=== PATIENT | male | born 1960 | race African-American/Black ===

== ENCOUNTER 2022-04-09 07:26 | Outpatient (CLI) | payer OTHER, SELFPAY ==
--- NOTE | ~2022-04-09 | NM_ITS ---
EXAMINATION: NM amy stress w perfusion DATE: 04/09/2022 09:12 INDICATION: Coronary artery disease TECHNIQUE: Rest images were obtained following intravenous administration of 10.9 mCi Tc99m tetrofosm in (Myoview). The patient was infused intravenously with Lexiscan (Regadenoson). Then, 34.5 mCi Tc99m tetrofosmin (Myoview) was administered intravenously, and stress images were obtained. Data was brad nstructed into short axis and horizontal and vertical long axis SPECT images. Gated SPECT images were also obtained. COMPARISON: None. FINDINGS: There is no definite reversible or fixed perfusion abnormality to suggest ischemia or infar ction. There is normal left ventricular chamber size, wall motion and ejection fraction. Left ventr icular ejection fraction measures 64%. IMPRESSION: 1. Normal myocardial perfusion at rest and during stress. 2. Left ventricular ejection fraction measuring 64%. Reviewed, dictated and finalized at location B.
--- NOTE | 2022-04-09 07:30 | EST_ITS ---
Patient Info Name: Geovani Crook Jr Age: 61 years : 1960 Gender: Male Ht: 70 in Wt: 280 lbs BSA: 2.56 m2 HR: 60 bpm BP: 150 / 92 mmHg Heart Rhythm: Sinus Rhythm Exam Date: 04/09/2022 8:25 AM Exam Location: [facility] Stress Patient Status: Outpatient Admit Date: 04/09/2022 Staff Ordering Physician: Sher David DO Attending Provider: Sher David DO Exercise Technologist: Donna Burgos CT Exercise Physician: Sher David DO Exam Type: CA stress amy w NM Study Info Indications Z01.810 - Encounter for preprocedural cardiovascular examination I25.10 - Atherosclerotic heart disease of [place] coronary artery without angina pectoris A regadenoson stress test was performed. Summary 1. 1. Negative lexiscan stress test for ischemic ST changes by ECG criteria. 2. 2. Baseline hypertension. 3. 3. Nuclear scan to follow and will be reported separately. Please correlate with it. 4. 4. Patient informed of the above results. Protocol: Lexiscan Stress ECG Details Stage: REST Duration (min): 1 min : 3 sec HR (bpm): 60 SBP (mmHg): 150 DBP (mmHg): 92 Stage: REST Duration (min): 6 min : 1 sec HR (bpm): 68 SBP (mmHg): 150 DBP (mmHg): 92 Stage: STAGE 1 Duration (min): 1 min : 0 sec HR (bpm): 75 SBP (mmHg): 150 DBP (mmHg): 92 Stage: RECOVERY Duration (min): 1 min : 0 sec HR (bpm): 84 SBP (mmHg): 157 DBP (mmHg): 75 Stage: RECOVERY Duration (min): 2 min : 0 sec HR (bpm): 83 SBP (mmHg): 157 DBP (mmHg): 75 Stage: RECOVERY Duration (min): 3 min : 0 sec HR (bpm): 81 SBP (mmHg): 155 DBP (mmHg): 79 Stage: RECOVERY Duration (min): 3 min : 3 sec HR (bpm): 81 SBP (mmHg): 155 DBP (mmHg): 79 Rest HR: 68 bpm Peak HR: 86 bpm Rest Sys BP: 150 mmHg Peak Sys BP: 157 mmHg Max Pred HR: 159 bpm % Max Pred HR: 54 % Target HR: 135 bpm Max RPP: 13,502 bpm*mmHg Termination Reason: Completed protocol Cardiac Symptoms: Shortness of breath Total Time: 1 min : 0 sec Rest Bryant BP: 92 mmHg Peak Bryant BP: 75 mmHg Total Dose: 0.4 mg Resting ECG Sinus rhythm. Stress ECG T wave inversions in anterolat/inf leads but no ST deviations. Arrhythmias None. Report Signatures
--- NOTE | 2022-04-09 07:30 | ECHO_ITS ---
Patient Info Name: Geovani Crook Jr Age: 61 years : 1960 Gender: Male Ht: 70 in Wt: 280 lbs BSA: 2.56 m2 HR: 58 bpm BP: 150 / 107 mmHg Technical Quality: Fair Exam Date: 04/09/2022 9:44 AM Exam Location: [facility] Pulmonary Patient Status: Outpatient Admit Date: 04/09/2022 Staff Ordering Physician: Sher David DO Missile Inspector: Dat Olivarez RDCS, RT Attending Provider: Sher David DO Referring Physician: Frankie DREW; Exam Type: CA echo doppler color flow Study Info Indications I25.10 - Atherosclerotic heart disease of [place] coronary artery without angina pectoris Complete two-dimensional, color flow and Doppler transthoracic echocardiogram is performed. Summary 1. Complete two-dimensional, color flow and Doppler transthoracic echocardiogram is performed. 2. Left ventricular chamber dimension is normal. 3. Left ventricular systolic function is normal, estimated at 55-60%. 4. There is moderately increased left ventricular wall thickness. 5. The left ventricular diastolic function is normal. 6. E/e' 8 is minimally elevated. 7. Left atrial chamber dimension is mildly enlarged. 8. There is mild mitral valve regurgitation. Left Ventricle E/e' 8 is minimally elevated. Left ventricular chamber dimension is normal. Left ventricular systolic function is normal, estimated at 55-60%. There is moderately increased left ventricular wall thickness. The left ventricular diastolic function is normal. Right Ventricle Right ventricular systolic function is normal and with normal TAPSE 2.6 cm. Right ventricular chamber dimension is normal. Left Atria Left atrial chamber dimension is mildly enlarged. Right Atria Right atrial chamber dimension is normal. Aortic Valve The aortic valve is trileaflet. There is no aortic valve stenosis. There is no aortic valve regurgitation. Pulmonic Valve There is no pulmonic regurgitation. Mitral Valve There is no mitral valve stenosis. There is mild mitral valve regurgitation. Tricuspid Valve There is no tricuspid valve regurgitation. Pericardium/Pleural There is no pericardial effusion. Inferior Vena Cava Normal inferior vena cava with >50% collapse upon inspiration consistent with normal right atrial pressure, 5 mmHg. Aorta The aortic root size at the sinus of Valsalva is normal. Left Ventricular Outflow Tract Name Value Normal LVOT 2D LVOT Diameter 2.1 cm LVOT Doppler LVOT Peak Gradient 4 mmHg LVOT Mean Gradient 2 mmHg LVOT VTI 23 cm LVOT VTI/AV VTI Ratio 0.7 LVOT Stroke Volume 82 ml Mitral Valve Name Value Normal MV Doppler MV Peak Gradient 1 mmHg MV Mean Gradient 0 mmHg MV Decel S
== END 2022-04-09 07:27 | disposition home or self-care (01) ==
LOC: ANHCARD 07:27
PROVIDERS: Visit Provider Internal Medicine Cardiovascular Disease
DX: I25.10 Atherosclerotic heart disease of native coronary artery without angina pectoris (principal)
CPT/HCPCS: 78452; 93017; 93306; A9502; J2785